=== PATIENT | female | born 1955 | race Caucasian/White ===

== ENCOUNTER 2018-07-21 07:00 | Emergency (ER) | payer OTHER ==
[~2018-07-21] VITALS: Ht 157.5 cm; Wt 61.2 kg
[2018-07-21] MEDS ORDERED: SYNTHROID75 MCG PO (07:28)
[2018-07-21] MEDS ORDERED: LISINOPRIL10 MG PO (07:29)
== END 2018-07-21 11:35 | disposition home or self-care (01) ==
LOC: ER 07:00
DX: J11.1 Influenza due to unidentified influenza virus with other respiratory manifestations (principal); N39.0 Urinary tract infection, site not specified

== ENCOUNTER 2019-07-10 15:02 | Emergency (ER) | payer OTHER ==
[~2019-07-10] VITALS: Ht 157.5 cm; Wt 56.7 kg
[~2019-07-10 15:02] MED LIST: LISINOPRIL10 MG PO; SYNTHROID75 MCG PO
== END 2019-07-10 16:41 | disposition home or self-care (01) ==
LOC: ER 15:02
DX: L13.0 Dermatitis herpetiformis (principal)